=== PATIENT | male | born 1990 | race Asian ===

== ENCOUNTER 2017-05-01 19:41 | Emergency (ER) | payer MEDICAID ==
[~2017-05-01] VITALS: Ht 167.6 cm; Wt 61.2 kg
[2017-05-01 19:45] VITALS: BP 126/80
--- NOTE | 2017-05-01 19:56 | NUR ---
PT. AMBULATED TO LOBBY, VSS, NO S/SX OF DISTRESS AT THIS TIME.
--- NOTE | 2017-05-01 20:34 | NUR ---
AMBULATED TO ER OF3
--- NOTE | 2017-05-01 21:15 | NUR ---
PATIENT PRESENTS TO ED WITH CP AND FEVER . PT STATES CP STARTED LAST NIGHT AND HE HAS HAD A FEVER X3 DAYS. DENIES N/V/D; SKIN IS PINK/WARM/DRY; AAOX4 WITH EVEN AND STEADY GAIT; LUNGS CLEAR BL; HR EVEN AND REGULAR; PT DENIES ANY COUGH AT THIS TIME; PATIENT STATES PAIN OF 6/10 AT THIS TIME; VSS; PATIENT POSITIONED FOR COMFORT; HOB ELEVATED; BEDRAILS UP X2; BED DOWN. ER MD MADE AWARE OF PT STATUS.
[2017-05-01] MEDS ORDERED: IBUPROFEN 800 MG TAB PO ONE (21:40)
[2017-05-01] MEDS ORDERED: IBUPROFEN 800 MG TAB ONE (21:48)
[2017-05-01 22:41] VITALS: BP 112/75
--- NOTE | 2017-05-01 22:42 | NUR ---
Patient discharged with v/s stable. Written and verbal after care instructions given and explained. Patient alert, oriented and verbalized understanding of instructions. Ambulatory with steady gait. All questions addressed prior to discharge. ID band removed. Patient advised to follow up with PMD. Rx of CODEINE/PHENYLEPHRINE/PROMETHAZINE, MOTRIN 800MG given. Patient educated on indication of medication including possible reaction and side effects. Opportunity to ask questions provided and answered.
== END 2017-05-01 22:41 | disposition home or self-care (01) ==
LOC: MED 19:41
DX: J06.9 Acute upper respiratory infection, unspecified (principal)
CPT/HCPCS: 71045; 93005; 99284